=== PATIENT | male | born 1960 | race Caucasian/White ===

== ENCOUNTER 2021-05-06 16:35 | Emergency (ER) | payer MEDICARE ==
[~2021-05-06] VITALS: Ht 177.8 cm; Wt 80.3 kg
[~2021-05-06 16:35] MED LIST: AMIT100T2 PO; BUPR100T4 PO; CLON0.5T4 PO; ESZO3TAB27 PO
[2021-05-06 16:51] VITALS: BP 136/68
--- NOTE | 2021-05-06 17:06 | NUR ---
THE PATIENT BIBS FOR C/O R HAND ABRASION FRM A DOG BITE AT 1400. NOT UTD W/ TETANUS SHOT. DENIES PAIN. WILL CONTINUE TO MONITOR THE PATIENT.
[2021-05-06] MEDS ORDERED: TDAP [DIPH/PERTUSSIS/TET] 0.5 ML VIAL IM ONE ×2 (17:15→17:30)
[2021-05-06] MEDS ORDERED: SULF1TAB48 PO (17:24)
[2021-05-06] MEDS ORDERED: METR500T PO (17:24)
[2021-05-06] MEDS ORDERED: BACITRACIN ZINC OINT PACKET 1 EA PACKET TP ONE (17:30)
== END 2021-05-06 17:40 | disposition home or self-care (01) ==
LOC: ER 16:40
DX: S61.451A Open bite of right hand, initial encounter (principal); F32.9 Major depressive disorder, single episode, unspecified; Z88.6 Allergy status to analgesic agent; Z88.5 Allergy status to narcotic agent; Z88.0 Allergy status to penicillin; Z91.013 Allergy to seafood; Z79.899 Other long term (current) drug therapy; W54.0XXA Bitten by dog, initial encounter; Y93.9 Activity, unspecified; Y92.89 Other specified places as the place of occurrence of the external cause; Y99.8 Other external cause status
CPT/HCPCS: 90715

== ENCOUNTER 2022-07-09 22:31 | Emergency (ER) | payer MEDICARE ==
[~2022-07-09] VITALS: Ht 175.3 cm; Wt 78.5 kg
[~2022-07-09 22:31] MED LIST changes: +METR500T PO; +SULF1TAB48 PO
[2022-07-09 22:49] VITALS: BP 153/93
== END 2022-07-10 00:59 | disposition home or self-care (01) ==
LOC: ER 22:33
DX: S62.635A Displaced fracture of distal phalanx of left ring finger, initial encounter for closed fracture (principal); W01.0XXA Fall on same level from slipping, tripping and stumbling without subsequent striking against object, initial encounter; Y93.89 Activity, other specified; Y92.89 Other specified places as the place of occurrence of the external cause; N18.4 Chronic kidney disease, stage 4 (severe); F31.9 Bipolar disorder, unspecified; Z88.6 Allergy status to analgesic agent; Z88.0 Allergy status to penicillin; Z91.013 Allergy to seafood; Z79.899 Other long term (current) drug therapy
CPT/HCPCS: 73130-TC